=== PATIENT | female | born 1965 | race Caucasian/White ===

== ENCOUNTER 2024-01-24 09:25 | Emergency (ER) | payer OTHER, SELFPAY ==
[2024-01-24 09:26] VITALS: BP 146/74; PULSE 57; RESP 16; TEMP 37.2; O2SAT 97; BMI 28.6
[2024-01-24 10:31] LABS: Absolute Lymphocyte Count 2.12 X10^3/uL (0.83-4.51); Absolute Neutrophil Count 2.2 X10^3/uL (2.0-7.7); Basophil# 0.02 X10^3/uL; Basophil% 0.4 % (0-1); Eosinophil# 0.17 X10^3/uL; Eosinophils% 3.3 % (0-5); Hematocrit 40.2 % (37-47); Hemoglobin 12.9 g/dL (12.0-15.0); Lymphocyte # 2.12 X10^3/ul (0.83-4.51); Lymphocyte % 41.5 % (19-41); Mean Corp Hgb Conc 32.1 g/dL (32-36); Mean Corpuscular Hgb 29.5 pg (27.0-32.0); Mean Platelet Vol. 9.1 fl (6.2-12.0); Monocyte# 0.58 X10^3/uL; Monocyte% 11.4 % (0-10); NRBC Flagged by Analyzer 0 % (0-5); Neutrophil # 2.21 X10^3/uL (2.7-7.7); Neutrophil % 43.2 % (47-70); Platelet Count 166 K/mm3 (150-450); RBC Distribution Width CV 13.3 % (11.6-14.6); RBC Distribution Width SD 45.2 fl (35.1-43.9); Red Blood Count 4.37 M/mm3 (4.2-5.4); White Blood Count 5.1 K/mm3 (4.4-11.0)
--- NOTE | 2024-01-24 10:35 | RAD_ITS ---
HISTORY: PAIN. TECHNIQUE: XR Knee Complete 4 Views or More. COMPARISON: None. FINDINGS: BONES : No acute fracture identified. Small patellar spur. JOINTS: No dislocation. Joint spaces maintained. SOFT TISSUES: Mild soft tissue swelling. RAD/Knee 4 or More Views IMPRESSION: No acute fracture or dislocation identified in the left knee. Electronically Signed: Concepcion Cornell MD at 11:12 EDT ,
--- NOTE | 2024-01-24 10:35 | RAD_ITS ---
HISTORY: PAIN. TECHNIQUE: XR Tibia/Fibula 2 Views. COMPARISON: None. FINDINGS: BONES : No acute fracture identified. Mineralization unremarkable. Calcaneal enthesopathy present. JOINTS: No dislocation. Joint spaces maintained. RAD/Tibia & Fibula 2 Views IMPRESSION: No acute fracture or dislocation identified in the left leg. Electronically Signed: Concepcion Cornell MD at 11:13 EDT ,
[2024-01-24 10:44] LABS: Anion Gap 4 (5-15); BUN 31 mg/dL (7-18); BUN/Creat Ratio 17.6 RATIO (10-20); Calcium,Total 9.3 mg/dL (8.5-10.1); Chloride 107 mmol/L (98-107); Creatinine, Serum 1.76 mg/dL (0.55-1.02); EST Glomerular Filtration Rate 31 mL/min (>60); Est Glom Filt Rate - Afr Amer 38 mL/min (>60); Estimated Creatinine Clearance 31.37 ml/min; Glucose 94 mg/dL (74-106); Sodium Level 138 mmol/L (136-145)
--- NOTE | 2024-01-24 12:06 | ED.VIS.LOWEX ---
HPI History of Present Illness Chief Complaint: Lower Extremity Injury Informant: patient Narrative Narrative: 58-year-old female states over the last several days or weeks her left lower extremity is buckled and giving out on her unexpectedly. As result she has pain from the knee all the way down to the ankle and everywhere in between. She denies any swelling. She is able to walk. It happens unexpectedly she states. She cannot tell which joint the problem is. She denies this happening in the other leg. She denies a history of knee problems in the past that she knows of. She states a week or 2 ago, her right arm went limp for a while and then was better and she does not know if that is related, and also states she has chronic kidney issues and has had potassium problems in the past and wonders if that could be related all of this as well. She denies any systemic symptoms. [facility] Medical History (Updated 01/24/24 @ 12:[address] Jarrod Rooney MD) Chronic kidney disease Allergy/AdvReac Type Severity Reaction Status Date / Time Penicillins Allergy UNKNOWN Verified 01/24/24 09:28 Tetracyclines AdvReac Nausea Verified 01/24/24 09:28 Social History Smoking Status: Unknown if ever smoked ROS ROS ED Constitutional Constitutional ED: Denies chills or fever(s) Musculoskeletal Musculoskeletal: Reports extremity pain; Denies neck pain Integumentary Denies Abrasions, rash or wounds Neurologic Neurologic: Denies paresthesias or weakness EXAM Physical Exam Const Vital Signs: 01/24/24 09:26 Temperature 98.9 F Temperature Source Oral Pulse Rate 57 L Respiratory Rate 16 Blood Pressure 146/74 H Blood Pressure Mean 98 Pulse Ox 97 Oxygen Delivery Method Room Air Positive well nourished and well developed General Appearance ED: well developed and NAD Neck full ROM and supple Back/Spine normal ROM and normal to inspection Extremity Extremity Narrative: Full range of motion of the left knee and ankle, everything is normal on inspection there is no effusion. There is no bony tenderness. There is some calf and diffuse muscular tenderness of the left lower leg. The ankle joint is not tender, and when I forcibly passively invert and kiya the foot at the ankle there is no reproduced pain. However with stressing the knee ligaments, she does have pain when I stressed the ACL and PCL but they are with short endpoints and there is no laxity. There is no pain with stressing the MCL and LCL. Neuro oriented x3, no focal motor deficits and no sensory deficits noted Sensorium / Orientation: alert Psych mental status grossly normal and thought process normal Skin no wounds Rashes: no rashes MDM MDM MDM Narrative Medical decision making narrative: With regards to her leg buckling I think this is more likely to be a knee issue than anything else. I obtained x-rays, 4 views of the left knee on my interpretation are negative for anything acute, and 2 view x-ray series of the tibia and fibula do not show anything acute either on my interpretation. Radiology was in agreement. I was amenable to doing some basic labs to check her electrolytes, she does have some elevated creatinine which she already told me to expect, and her electrolytes and blood counts are normal. We also spent some time talking about fluctuations in white blood count she was concerned that she went from 8-4 and I advised her not to worry that is normal. It is 5.1 today with no abnormal shift except for a mild monocytosis of unknown significance. At this time I do not think she needs a knee immobilizer but I am going to put her in an Owen wrap, and advised using a cane while she is walking especially outside, and to follow-up. Not able to rule out the possibility of an internal left knee derangement, acute or chronic. She is comfortable with that plan. Lab Data Attestation: I reviewed the patient's lab results. Labs: Laboratory Results - last 24 hr 01/24/24 10:15 WBC 5.1 RBC 4.37 Hgb 12.9 Hct 40.2 MCV 92.0 MCH 29.5 MCHC 32.1 RDW Std Deviation 45.2 H RDW Coeff of Lauren 13.3 Plt Count 166 MPV 9.1 Immature Gran % (Auto) 0.200 Neut % (Auto) 43.2 L Lymph % (Auto) 41.5 H Cameron % (Auto) 11.4 H Eos % (Auto) 3.3 Baso % (Auto) 0.4 Absolute Neuts (auto) 2.2 Absolute Lymphs (auto) 2.12 Nucleated RBC % 0 Sodium 138 Potassium 5.0 Chloride 107 Carbon Dioxide 28.0 Anion Gap 4 L BUN 31 H Creatinine 1.76 H Estim Creat Clear Calc 31.37 Est GFR (MDRD) Af Amer 38 L Est GFR (MDRD) Non-Af 31 L BUN/Creatinine Ratio 17.6 Glucose 94 Calcium 9.3 Radiography Diagnostic Testing: Clinical Impression(s) from Imaging Studies Knee X-Ray 01/24/24 10:35 IMPRESSION: No acute fracture or dislocation identified in the left knee. Electronically Signed: Concepcion Cornell MD at 11:12 EDT , Tibia/Fibula X-Ray 01/24/24 10:35 IMPRESSION: No acute fracture or dislocation identified in the left leg. Electronically Signed: Concepcion Cornell MD at 11:13 EDT , Discharge Plan Triage Chief Complaint: Lower Extremity Injury ED Provider: Jarrod Rooney Dx/Rx/DC Orders Clinical Impression: Acute pain of left knee, CKD (chronic kidney disease) Instructions: ED Knee Pain of Uncertain Cause Primary Care Provider: Jose Maria Burgos Referrals: Jose Maria Burgos DO [Primary Care Provider] - (call for follow up appt) Print Language: [place] Disposition Disposition: Home, Self Care
[2024-01-24 12:24] VITALS: BP 137/72; PULSE 61; RESP 16; TEMP 36.6; O2SAT 99
== END 2024-01-24 12:25 | disposition home or self-care (01) ==
PROVIDERS: Emergency Provider Emergency Medicine; PCP Preventive Medicine Occupational Medicine; Visit Provider Emergency Medicine
DX: M25.562 Pain in left knee (principal); X58.XXXA Exposure to other specified factors, initial encounter; N18.9 Chronic kidney disease, unspecified
CPT/HCPCS: 73564; 73590; 80048; 85025; 99282